=== PATIENT | male | born 1995 | race Two or more races ===

== ENCOUNTER 2019-12-02 11:47 | Emergency (ER) | payer MEDICAID ==
[~2019-12-02] VITALS: Ht 165.1 cm; Wt 78.9 kg
[2019-12-02 15:15] VITALS: BP 140/89
== END 2019-12-02 16:04 | disposition home or self-care (01) ==
LOC: ER 11:47
DX: L03.011 Cellulitis of right finger (principal); R04.0 Epistaxis

== ENCOUNTER 2023-05-28 08:08 | Emergency (ER) | payer MEDICAID ==
[~2023-05-28] VITALS: Ht 165.1 cm; Wt 83.8 kg
[2023-05-28 08:44] VITALS: PULSE 77; RESP 16; O2SAT 98
[2023-05-28] MEDS ORDERED: TETANUS-DIPTH-ACEL PERTUSSIS 0.5ML SYR Tdap IM ONE (09:45)
[2023-05-28 14:05] VITALS: BP 131/88; PULSE 90; RESP 18; TEMP 98.4; O2SAT 99
== END 2023-05-28 14:26 | disposition short-term general hospital (02) ==
LOC: ER 08:08
DX: S51.811A Laceration without foreign body of right forearm, initial encounter (principal); S61.511A Laceration without foreign body of right wrist, initial encounter; Z79.899 Other long term (current) drug therapy; W25.XXXA Contact with sharp glass, initial encounter; Y93.01 Activity, walking, marching and hiking; Y92.89 Other specified places as the place of occurrence of the external cause; Y99.8 Other external cause status
CPT/HCPCS: 12002; 73100; 82962; 90471; 90715

== ENCOUNTER 2023-06-04 12:28 | Emergency (ER) | payer MEDICAID ==
[~2023-06-04] VITALS: Ht 165.1 cm; Wt 82.2 kg
[2023-06-04 12:49] VITALS: BP 114/75; PULSE 89; RESP 18; TEMP 98; O2SAT 98
[2023-06-04] MEDS ORDERED: MUPI2OIN2 EX (15:26)
== END 2023-06-04 15:53 | disposition home or self-care (01) ==
LOC: ER 12:28
DX: S61.511D Laceration without foreign body of right wrist, subsequent encounter (principal); Z79.899 Other long term (current) drug therapy; X58.XXXD Exposure to other specified factors, subsequent encounter

== ENCOUNTER 2023-06-07 11:47 | Emergency (ER) | payer MEDICAID ==
[~2023-06-07] VITALS: Ht 165.1 cm; Wt 81.8 kg
[~2023-06-07 11:47] MED LIST: MUPI2OIN2 EX
[2023-06-07 13:01] VITALS: BP 138/84; PULSE 87; RESP 16; TEMP 98; O2SAT 97
== END 2023-06-07 13:02 | disposition home or self-care (01) ==
LOC: ER 11:47
DX: S61.511D Laceration without foreign body of right wrist, subsequent encounter (principal); X58.XXXD Exposure to other specified factors, subsequent encounter

== ENCOUNTER 2023-06-20 14:06 | Emergency (ER) | payer MEDICAID ==
[~2023-06-20] VITALS: Ht 165.1 cm; Wt 81.6 kg
[2023-06-20 14:15] VITALS: BP 115/77; PULSE 83; RESP 16; TEMP 97.8; O2SAT 98
== END 2023-06-20 19:16 | disposition home or self-care (01) ==
LOC: ER 14:06
DX: S61.511D Laceration without foreign body of right wrist, subsequent encounter (principal); Z79.899 Other long term (current) drug therapy; X58.XXXD Exposure to other specified factors, subsequent encounter